=== PATIENT | male | born 1955 | race African-American/Black ===

== ENCOUNTER 2021-05-18 13:56 | Inpatient (IN) | payer MEDICARE, MEDICAID ==
[~2021-05-18] VITALS: Ht 175.3 cm; Wt 87.7 kg
[2021-05-18 16:25] LABS: BASOPHILS % 1.1 % (0.0-2.0); EOSINOPHILS % 1.1 % (0.0-5.0); HEMOGLOBIN. 13.2 g/dL (14.0-18.0); LYMPHOCYTES % 25.1 % (20.0-50.0); MEAN CORPUSCULAR HEMOGLOBIN 32.2 pg (28.0-32.0); MEAN CORPUSCULAR VOLUME 94.6 fL (80.0-94.0); MEAN PLATELET VOLUME 7.1 fl (7.4-10.4); MONOCYTES % 7.9 % (2.0-8.0); NEUTROPHILS % 64.8 % (40.0-76.0); PLATELET 281 x1000/uL (130-400); RED BLOOD CELL COUNT 4.12 mill/uL (4.7-6.1); RED CELL DISTRIBUTION WIDTH 15.5 % (11.6-14.6)
[2021-05-18 16:28] LABS: CHLORIDE 111 mEq/L (98-107)
[2021-05-18 16:40] LABS: PROTHROMBIN TIME 10.5 sec (9.6-11.0)
[2021-05-18 16:53] LABS: CLARITY URINE TURBID (CLEAR); COLOR URINE RED (YELLOW); KETONES URINE NEGATIVE (NEGATIVE); LEUKOCYTE ESTERASE URINE 2+ (NEGATIVE); NITRITE URINE POSITIVE (NEGATIVE); OCCULT BLOOD URINE 3+ (NEGATIVE); PH URINE 6.5 (4.5-8.0); PROTEIN URINE 4+ (NEGATIVE); SPECIFIC GRAVITY URINE 1.037 (1.005-1.030); UROBILINOGEN URINE 0.2 E.U./dL (0.2-1.0)
[2021-05-18] MEDS ORDERED: CEFTRIAXONE 1 G PREMIX 50 ML IV ONE (17:15)
[2021-05-18] MEDS ORDERED: IOHEXOL-300 100 ML BOTTLE ONE (21:19)
[2021-05-18 21:20] VITALS: BP 131/71
[2021-05-18 22:30] VITALS: BP 136/70
[2021-05-19] VITALS: BP 131/83
[2021-05-19] MEDS ORDERED: DEXTROSE 50% WATER 50ML SYRINGE IV PRN (00:15)
[2021-05-19] MEDS ORDERED: ACETAMINOPHEN 650MG/20.3ML UDC PO PRN (00:15)
[2021-05-19] MEDS ORDERED: CEFTRIAXONE 1 G PREMIX 50 ML IV SCH (00:15)
[2021-05-19] MEDS ORDERED: ASPI-1497 MT (00:56)
[2021-05-19] MEDS ORDERED: metformin (00:56)
[2021-05-19 04:00] VITALS: BP 130/84
[2021-05-19 06:23] LABS: CHLORIDE 110 mEq/L (98-107)
[2021-05-19] MEDS: BLOOD SUGAR DIAGNOSTIC STRIP TEST SCH ×4 (06:40→20:43)
[2021-05-19 06:43] LABS: BASOPHILS % 0.8 % (0.0-2.0); EOSINOPHILS % 2.3 % (0.0-5.0); HEMATOCRIT. 36.7 % (42.0-52.0); HEMOGLOBIN. 12.5 g/dL (14.0-18.0); LYMPHOCYTES % 36.9 % (20.0-50.0); MEAN CORPUSCULAR HEMOGLOBIN 32.2 pg (28.0-32.0); MEAN CORPUSCULAR VOLUME 94.7 fL (80.0-94.0); MONOCYTES % 11.3 % (2.0-8.0); NEUTROPHILS % 48.7 % (40.0-76.0); PLATELET 283 x1000/uL (130-400); RED BLOOD CELL COUNT 3.88 mill/uL (4.7-6.1); RED CELL DISTRIBUTION WIDTH 15.5 % (11.6-14.6)
[2021-05-19] MEDS: INSULIN LISPRO 100 UNITS/ML SUBCUT SCH ×5 (07:10→20:59)
[2021-05-19 08:00] VITALS: BP 112/63
[2021-05-19] MEDS ORDERED: MORPHINE SULFATE 2 MG/ML CPJ (NOT FOR IM USE) IV PRN (11:00)
[2021-05-19 12:00] VITALS: BP 113/69
[2021-05-19 16:00] VITALS: BP 107/74
[2021-05-19] MEDS ORDERED: BISACODYL 10MG SUPP PR PRN (16:00)
[2021-05-19] MEDS ORDERED: IPRATROPIUM/ALBUTEROL 0.5-3(2.5)MG/3ML NEB HHN PRN (16:00)
[2021-05-19] MEDS ORDERED: LACTULOSE 20G/30ML UDC PO PRN (16:00)
[2021-05-19] MEDS ORDERED: ONDANSETRON HCL 4MG/2ML INJ IV PRN (16:00)
[2021-05-19] MEDS ORDERED: HYDRALAZINE 20MG/ML VIAL IV PRN (16:00)
[2021-05-19] MEDS: SODIUM CHLORIDE 0.45% 1,000 ML IV SCH (17:53)
[2021-05-19] MEDS: CEFTRIAXONE 1,000 MG in DEXTROSE 5% WATER 50 ML IV SCH (17:53)
[2021-05-19 20:00] VITALS: BP 123/68
[2021-05-19] MEDS: SULFAMETHOXAZOLE/TRIMETHOPRIM 400/80MG TAB PO SCH (20:43)
[2021-05-19] MEDS: FAMOTIDINE 20MG TABLET PO SCH (20:43)
[2021-05-19] MEDS ORDERED: NALOXONE HCL 0.4MG/ML VIAL IV PRN (23:45)
[2021-05-20] VITALS: BP 130/73
[2021-05-20 04:00] VITALS: BP 123/64
[2021-05-20] MEDS: INSULIN LISPRO 100 UNITS/ML SUBCUT SCH ×4 (07:10→20:35)
[2021-05-20] MEDS: BLOOD SUGAR DIAGNOSTIC STRIP TEST SCH ×4 (07:16→20:35)
[2021-05-20 08:00] VITALS: BP 120/67
[2021-05-20] MEDS: SODIUM CHLORIDE 0.45% 1,000 ML IV SCH (09:18)
[2021-05-20] MEDS: SULFAMETHOXAZOLE/TRIMETHOPRIM 400/80MG TAB PO SCH ×2 (09:18→20:19)
[2021-05-20 09:44] LABS: BASOPHILS % 0.9 % (0.0-2.0); CHLORIDE 110 mEq/L (98-107); EOSINOPHILS % 2.7 % (0.0-5.0); HEMOGLOBIN. 12.7 g/dL (14.0-18.0); MEAN CORPUSCULAR HEMOGLOBIN 31.9 pg (28.0-32.0); MEAN CORPUSCULAR VOLUME 95.4 fL (80.0-94.0); MEAN PLATELET VOLUME 7.5 fl (7.4-10.4); MONOCYTES % 11.6 % (2.0-8.0); NEUTROPHILS % 58.8 % (40.0-76.0); PLATELET 279 x1000/uL (130-400); RED BLOOD CELL COUNT 3.98 mill/uL (4.7-6.1); RED CELL DISTRIBUTION WIDTH 15.5 % (11.6-14.6)
[2021-05-20 12:00] VITALS: BP 115/79
[2021-05-20 16:00] VITALS: BP 152/65
[2021-05-20] MEDS: CEFTRIAXONE 1,000 MG in DEXTROSE 5% WATER 50 ML IV SCH (18:07)
[2021-05-20 20:00] VITALS: BP 141/79
[2021-05-20] MEDS: FAMOTIDINE 20MG TABLET PO SCH (20:19)
[2021-05-21] VITALS: BP 150/75
[2021-05-21] MEDS: SODIUM CHLORIDE 0.45% 1,000 ML IV SCH ×2 (00:20→18:00)
[2021-05-21 04:00] VITALS: BP 141/74
[2021-05-21] MEDS: BLOOD SUGAR DIAGNOSTIC STRIP TEST SCH ×3 (05:57→16:41)
[2021-05-21] MEDS: INSULIN LISPRO 100 UNITS/ML SUBCUT SCH ×3 (06:37→16:41)
[2021-05-21 07:05] LABS: BASOPHILS % 0.9 % (0.0-2.0); EOSINOPHILS % 2.4 % (0.0-5.0); HEMATOCRIT. 35.8 % (42.0-52.0); HEMOGLOBIN. 12.1 g/dL (14.0-18.0); LYMPHOCYTES % 37.8 % (20.0-50.0); MEAN CORPUSCULAR HEMOGLOBIN 32.1 pg (28.0-32.0); MEAN CORPUSCULAR VOLUME 94.9 fL (80.0-94.0); MEAN PLATELET VOLUME 7.5 fl (7.4-10.4); MONOCYTES % 10.6 % (2.0-8.0); NEUTROPHILS % 48.3 % (40.0-76.0); PLATELET 256 x1000/uL (130-400); RED BLOOD CELL COUNT 3.77 mill/uL (4.7-6.1); RED CELL DISTRIBUTION WIDTH 15.5 % (11.6-14.6)
[2021-05-21 07:19] LABS: CHLORIDE 112 mEq/L (98-107)
[2021-05-21 08:00] VITALS: BP 169/79
[2021-05-21] MEDS: SULFAMETHOXAZOLE/TRIMETHOPRIM 400/80MG TAB PO SCH (08:48)
[2021-05-21 12:00] VITALS: BP 151/81
[2021-05-21] MEDS ORDERED: LEVO500T89 MT (13:51)
[2021-05-21 15:00] VITALS: BP 151/81
[2021-05-21 16:00] VITALS: BP 162/78
[2021-05-21] MEDS: CEFTRIAXONE 1,000 MG in DEXTROSE 5% WATER 50 ML IV SCH (18:00)
== END 2021-05-21 18:27 | disposition home or self-care (01) | DRG 687 ==
LOC: ER 13:56 → 7EST 18:47 → ENRESERV 20:23
PROVIDERS: ADMIT Internal Medicine; ATTEND Internal Medicine
PROC: 0T9B70Z Drainage of Bladder with Drainage Device, Via Natural or Artificial Opening (ICD-10-PCS; principal; 2021-05-18)
DX: C67.9 Malignant neoplasm of bladder, unspecified (principal); N39.0 Urinary tract infection, site not specified; L97.929 Non-pressure chronic ulcer of unspecified part of left lower leg with unspecified severity; L97.919 Non-pressure chronic ulcer of unspecified part of right lower leg with unspecified severity; S37.22XA Contusion of bladder, initial encounter; D64.9 Anemia, unspecified; E11.9 Type 2 diabetes mellitus without complications; S80.822A Blister (nonthermal), left lower leg, initial encounter; S80.821A Blister (nonthermal), right lower leg, initial encounter; X58.XXXA Exposure to other specified factors, initial encounter; K21.9 Gastro-esophageal reflux disease without esophagitis; Y83.5 Amputation of limb(s) as the cause of abnormal reaction of the patient, or of later complication, without mention of misadventure at the time of the procedure; I71.4 Abdominal aortic aneurysm, without rupture; I10 Essential (primary) hypertension; Z20.822 Contact with and (suspected) exposure to COVID-19; N43.3 Hydrocele, unspecified; Z79.82 Long term (current) use of aspirin; Z89.612 Acquired absence of left leg above knee; Z89.611 Acquired absence of right leg above knee; Y92.89 Other specified places as the place of occurrence of the external cause; Y93.89 Activity, other specified; Y99.8 Other external cause status
CPT/HCPCS: 36415; 74160; 80048; 80053; 81003; 82962; 83036; 84153; 85025; 86850; 86900; 87070; 87426; 99285; J0360; J0696; J1815; J7060; Q9967; G0103

== ENCOUNTER 2021-05-22 23:19 | Emergency (ER) | payer MEDICARE, MEDICAID ==
[~2021-05-22] VITALS: Ht 175.3 cm; Wt 99.0 kg
[~2021-05-22 23:19] MED LIST: ASPI-1497 MT; LEVO500T89 MT; metformin
[2021-05-23 04:02] VITALS: BP 136/88
== END 2021-05-23 04:20 | disposition home or self-care (01) ==
LOC: ER 23:19
DX: R33.9 Retention of urine, unspecified (principal); E11.9 Type 2 diabetes mellitus without complications; K21.9 Gastro-esophageal reflux disease without esophagitis; I10 Essential (primary) hypertension; Z79.82 Long term (current) use of aspirin; Z79.899 Other long term (current) drug therapy; Z89.512 Acquired absence of left leg below knee; Z89.511 Acquired absence of right leg below knee
CPT/HCPCS: 51702; 99284

== ENCOUNTER 2021-07-31 10:49 | Inpatient (IN) | payer MEDICARE, MEDICAID ==
[2021-07-30 23:00] VITALS: BP 134/75
[~2021-07-31] VITALS: Ht 121.9 cm; Wt 69.9 kg
[~2021-07-31 10:49] MED LIST changes: -ASPI-1497 MT
[2021-07-31] MEDS ORDERED: MORPHINE SULFATE 4 MG/ML CPJ (NOT FOR IM USE) IV STA (12:26)
[2021-07-31] MEDS ORDERED: ONDANSETRON HCL 4MG/2ML INJ IV STA (12:26)
[2021-07-31] MEDS ORDERED: PIPERACILLIN/TAZ 3.375G PREMIX 50 ML IV ONE (12:30)
[2021-07-31] MEDS ORDERED: SODIUM CHLORIDE 0.9% 1000ML BAG (SEPSIS BOLUS) IV ONE (12:30)
[2021-07-31] MEDS ORDERED: VANCOMYCIN 1 G PREMIX 200 ML IV ONE (12:30)
[2021-07-31 13:09] LABS: BASOPHILS % 0.9 % (0.0-2.0); EOSINOPHILS % 0.8 % (0.0-5.0); HEMATOCRIT. 43.3 % (42.0-52.0); HEMOGLOBIN. 14.5 g/dL (14.0-18.0); LYMPHOCYTES % 27.2 % (20.0-50.0); MEAN CORPUSCULAR HEMOGLOBIN 31.3 pg (28.0-32.0); MEAN CORPUSCULAR VOLUME 93.6 fL (80.0-94.0); MEAN PLATELET VOLUME 8.4 fl (7.4-10.4); MONOCYTES % 7.8 % (2.0-8.0); NEUTROPHILS % 63.3 % (40.0-76.0); PLATELET 280 x1000/uL (130-400); RED BLOOD CELL COUNT 4.62 mill/uL (4.7-6.1); RED CELL DISTRIBUTION WIDTH 14.8 % (11.6-14.6)
[2021-07-31 13:16] LABS: CHLORIDE 107 mEq/L (98-107)
[2021-07-31] MEDS ORDERED: HYDRALAZINE 20MG/ML VIAL IV PRN (14:00)
[2021-07-31] MEDS ORDERED: DOCUSATE SODIUM 100MG CAPSULE PO PRN (16:45)
[2021-07-31] MEDS ORDERED: GUAIFENESIN 200MG/10ML SUGAR FREE UDC PO PRN (16:45)
[2021-07-31] MEDS ORDERED: DEXTROSE 50% WATER 50ML SYRINGE IV PRN ×2 (16:45→23:30)
[2021-07-31] MEDS ORDERED: NA PHOS,M-B/NA PHOS,DI-BA ENEMA 118ML PR PRN (16:45)
[2021-07-31] MEDS ORDERED: LORAZEPAM 0.5MG TABLET PO PRN (16:45)
[2021-07-31] MEDS ORDERED: ONDANSETRON HCL 4MG/2ML INJ IV PRN (16:45)
[2021-07-31] MEDS ORDERED: IPRATROPIUM/ALBUTEROL 0.5-3(2.5)MG/3ML NEB NEB PRN (16:45)
[2021-07-31] MEDS ORDERED: ACETAMINOPHEN 325MG TABLET PO PRN ×2 (16:45→23:30)
[2021-07-31] MEDS ORDERED: MAGNESIUM/ALUMINUM HYDROXIDE/SIMETHICONE 30ML UDC PO PRN (16:45)
[2021-07-31] MEDS ORDERED: DIPHENHYDRAMINE 50MG/ML VIAL IV PRN (16:45)
[2021-07-31] MEDS ORDERED: CLONIDINE 0.1MG TABLET PO PRN (16:45)
[2021-07-31] MEDS ORDERED: ACETAMINOPHEN 650MG SUPP PR PRN (16:45)
[2021-07-31] MEDS: INSULIN LISPRO 100 UNITS/ML SUBCUT SCH ×2 (17:10→21:25)
[2021-07-31] MEDS: BLOOD SUGAR DIAGNOSTIC STRIP TEST SCH ×2 (17:58→21:25)
[2021-07-31] MEDS: MORPHINE SULFATE 2 MG/ML CPJ (NOT FOR IM USE) IV PRN (19:02)
[2021-07-31] MEDS ORDERED: PIPERACILLIN/TAZOBACTAM 3.375 G in DEXTROSE 5% WATER 50 ML IV SCH (20:00)
[2021-07-31 23:00] VITALS: BP 134/75
[2021-07-31] MEDS ORDERED: NALOXONE HCL 0.4 MG/ML 1ML VIAL IV PRN (23:45)
[2021-07-31 23:50] VITALS: BP 135/75
[2021-08-01] MEDS: SODIUM CHLORIDE 0.45% 1,000 ML IV SCH ×2 (01:10→20:10)
[2021-08-01] MEDS: VANCOMYCIN 500 MG PREMIX 100 ML IV SCH ×2 (01:10→17:33)
[2021-08-01 04:00] VITALS: BP 152/82
[2021-08-01] MEDS ORDERED: PIPERACILLIN/TAZOBACTAM 3.375 G in DEXTROSE 5% WATER 50 ML IV SCH (06:00)
[2021-08-01] MEDS: PIPERACILLIN/TAZOBACTAM 3.375 G in DEXTROSE 5% WATER 50 ML IV SCH ×3 (06:26→21:26)
[2021-08-01] MEDS: BLOOD SUGAR DIAGNOSTIC STRIP TEST SCH ×4 (06:26→21:25)
[2021-08-01] MEDS: PANTOPRAZOLE 40MG DR TABLET PO SCH (06:26)
[2021-08-01 07:23] LABS: BASOPHILS % 1.1 % (0.0-2.0); EOSINOPHILS % 2.8 % (0.0-5.0); HEMOGLOBIN. 12.9 g/dL (14.0-18.0); LYMPHOCYTES % 26.7 % (20.0-50.0); MEAN CORPUSCULAR HEMOGLOBIN 31.4 pg (28.0-32.0); MEAN CORPUSCULAR VOLUME 92.9 fL (80.0-94.0); MEAN PLATELET VOLUME 8.3 fl (7.4-10.4); MONOCYTES % 10.7 % (2.0-8.0); NEUTROPHILS % 58.7 % (40.0-76.0); PLATELET 234 x1000/uL (130-400); RED BLOOD CELL COUNT 4.09 mill/uL (4.7-6.1); RED CELL DISTRIBUTION WIDTH 14.7 % (11.6-14.6)
[2021-08-01] MEDS: INSULIN LISPRO 100 UNITS/ML SUBCUT SCH ×4 (07:40→21:00)
[2021-08-01 07:43] LABS: CHLORIDE 110 mEq/L (98-107)
[2021-08-01 07:48] LABS: LDL CHOLESTEROL 38 mg/dL (5-100)
[2021-08-01 07:49] LABS: HDL CHOLESTEROL 49 mg/dL (40-59)
[2021-08-01 08:00] VITALS: BP 133/74
[2021-08-01] MEDS: METFORMIN HCL 500MG TABLET PO SCH ×3 (10:37→17:34)
[2021-08-01] MEDS: LOSARTAN POTASSIUM 50 MG TABLET PO SCH ×2 (10:38→17:33)
[2021-08-01] MEDS: HYDROCODONE/ACETAMINOPHEN 5/325MG TABLET PO PRN ×2 (10:42→17:35)
[2021-08-01 12:00] VITALS: BP 156/90
[2021-08-01 16:00] VITALS: BP 126/74
[2021-08-01 16:26] LABS: PROTHROMBIN TIME 10.7 sec (9.6-11.0)
[2021-08-01 20:00] VITALS: BP 132/76
[2021-08-01] MEDS: ENOXAPARIN 40MG/0.4ML SYR SUBCUT SCH (20:00)
[2021-08-02] VITALS: BP 125/77
[2021-08-02] MEDS: VANCOMYCIN 500 MG PREMIX 100 ML IV SCH (01:35)
[2021-08-02 04:00] VITALS: BP 130/72
[2021-08-02] MEDS: PIPERACILLIN/TAZOBACTAM 3.375 G in DEXTROSE 5% WATER 50 ML IV SCH ×3 (06:17→21:32)
[2021-08-02] MEDS: PANTOPRAZOLE 40MG DR TABLET PO SCH (06:24)
[2021-08-02] MEDS: BLOOD SUGAR DIAGNOSTIC STRIP TEST SCH ×4 (06:34→21:44)
[2021-08-02] MEDS: INSULIN LISPRO 100 UNITS/ML SUBCUT SCH ×4 (07:20→21:00)
[2021-08-02 08:00] VITALS: BP 159/69
[2021-08-02] MEDS: ENOXAPARIN 40MG/0.4ML SYR SUBCUT SCH (08:02)
[2021-08-02] MEDS: LOSARTAN POTASSIUM 50 MG TABLET PO SCH ×2 (08:02→17:22)
[2021-08-02] MEDS: METFORMIN HCL 500MG TABLET PO SCH ×3 (08:02→17:22)
[2021-08-02 08:45] LABS: BASOPHILS % 0.3 % (0.0-2.0); EOSINOPHILS % 2.4 % (0.0-5.0); HEMATOCRIT. 40.2 % (42.0-52.0); HEMOGLOBIN. 13.2 g/dL (14.0-18.0); LYMPHOCYTES % 28.6 % (20.0-50.0); MEAN CORPUSCULAR HEMOGLOBIN 30.5 pg (28.0-32.0); MEAN PLATELET VOLUME 8.4 fl (7.4-10.4); MONOCYTES % 8.8 % (2.0-8.0); NEUTROPHILS % 59.9 % (40.0-76.0); PLATELET 248 x1000/uL (130-400); RED BLOOD CELL COUNT 4.32 mill/uL (4.7-6.1); RED CELL DISTRIBUTION WIDTH 15.1 % (11.6-14.6)
[2021-08-02 08:52] LABS: CHLORIDE 108 mEq/L (98-107)
[2021-08-02] MEDS: VANCOMYCIN 750 MG PREMIX 150 ML IV SCH ×2 (11:37→17:22)
[2021-08-02 12:00] VITALS: BP 136/75
[2021-08-02] MEDS ORDERED: LIDOCAINE HCL 1% 10 MG/ML 10ML VIAL ONE (13:31)
[2021-08-02] MEDS: SODIUM CHLORIDE 0.45% 1,000 ML IV SCH (14:34)
[2021-08-02 16:00] VITALS: BP 136/59
[2021-08-02] MEDS ORDERED: TETANUS AND DIPHTHERIA TOX/PF 0.5ML SYR (ADULT) IM ONE (16:00)
[2021-08-02 20:00] VITALS: BP 138/74
[2021-08-03] VITALS: BP 138/75
[2021-08-03 04:00] VITALS: BP 131/71
[2021-08-03] MEDS: VANCOMYCIN 750 MG PREMIX 150 ML IV SCH ×2 (05:16→11:28)
[2021-08-03] MEDS: PIPERACILLIN/TAZOBACTAM 3.375 G in DEXTROSE 5% WATER 50 ML IV SCH ×3 (06:17→21:58)
[2021-08-03] MEDS: PANTOPRAZOLE 40MG DR TABLET PO SCH (06:18)
[2021-08-03] MEDS: INSULIN LISPRO 100 UNITS/ML SUBCUT SCH ×4 (07:50→21:00)
[2021-08-03 08:00] VITALS: BP 140/74
[2021-08-03] MEDS: BLOOD SUGAR DIAGNOSTIC STRIP TEST SCH ×4 (08:14→21:00)
[2021-08-03] MEDS: ENOXAPARIN 40MG/0.4ML SYR SUBCUT SCH (08:15)
[2021-08-03] MEDS: METFORMIN HCL 500MG TABLET PO SCH ×3 (08:52→17:13)
[2021-08-03] MEDS: LOSARTAN POTASSIUM 50 MG TABLET PO SCH ×2 (08:53→17:00)
[2021-08-03 08:54] LABS: BASOPHILS % 1.1 % (0.0-2.0); EOSINOPHILS % 1.8 % (0.0-5.0); HEMATOCRIT. 40.7 % (42.0-52.0); HEMOGLOBIN. 13.1 g/dL (14.0-18.0); LYMPHOCYTES % 27.6 % (20.0-50.0); MEAN CORPUSCULAR HEMOGLOBIN 29.8 pg (28.0-32.0); MEAN CORPUSCULAR VOLUME 92.8 fL (80.0-94.0); MEAN PLATELET VOLUME 8.5 fl (7.4-10.4); MONOCYTES % 9.5 % (2.0-8.0); PLATELET 256 x1000/uL (130-400); RED BLOOD CELL COUNT 4.38 mill/uL (4.7-6.1); RED CELL DISTRIBUTION WIDTH 14.6 % (11.6-14.6)
[2021-08-03] MEDS ORDERED: VANCOMYCIN HCL 1 GM/VIAL ONE (11:38)
[2021-08-03] MEDS ORDERED: LIDOCAINE HCL/EPINEPHRINE 1%-EPI 1:100,000 20 ML VIAL ONE (11:41)
[2021-08-03] MEDS ORDERED: POLYMYXIN B SULFATE 500000 UNITS/VIAL ONE (11:41)
[2021-08-03 11:43] LABS: CHLORIDE 107 mEq/L (98-107)
[2021-08-03 11:48] LABS: C REACTIVE PROTEIN QUANT 5.6 mg/L (0.0-3.0)
[2021-08-03 12:00] VITALS: BP 140/72
[2021-08-03] MEDS: SODIUM CHLORIDE 0.45% 1,000 ML IV SCH (12:17)
[2021-08-03 16:00] VITALS: BP 138/78
[2021-08-03] MEDS ORDERED: PROPOFOL 200MG/20ML VIAL IV ONE ×2 (17:25→17:42)
[2021-08-03] MEDS ORDERED: FENTANYL CITRATE/PF 50MCG/ML 2ML VIAL ONE (17:25)
[2021-08-03] MEDS ORDERED: MIDAZOLAM HCL 2 MG/2 ML VIAL ONE (17:26)
[2021-08-03] MEDS ORDERED: ONDANSETRON HCL 4MG/2ML INJ ONE (17:35)
[2021-08-03] MEDS ORDERED: DEXAMETHASONE 4MG/ML 1ML VIAL ONE (17:35)
[2021-08-03] MEDS ORDERED: ONDANSETRON HCL 4MG/2ML INJ IV PRN (17:45)
[2021-08-03] MEDS ORDERED: MEPERIDINE HCL/PF 25MG/ML CPJ IV PRN (17:45)
[2021-08-03] MEDS ORDERED: LABETALOL 5MG/ML SYR 20 MG/4 ML SYRINGE IV PRN (17:45)
[2021-08-03] MEDS ORDERED: ROPIVACAINE HCL 10MG/ML 20 ML VIAL EPI ONE (17:51)
[2021-08-03] MEDS: HYDROMORPHONE HCL/PF 2MG/ML CPJ IV PRN ×5 (18:36→19:25)
[2021-08-03 20:00] VITALS: BP 149/74
[2021-08-03] MEDS: VANCOMYCIN 1 G PREMIX 200 ML IV SCH (21:58)
[2021-08-03] MEDS: MORPHINE SULFATE 2 MG/ML CPJ (NOT FOR IM USE) IV PRN (23:52)
[2021-08-04] VITALS (8 sets, daily range): BP systolic 145–163; BP diastolic 69–84
[2021-08-04] MEDS: VANCOMYCIN 1 G PREMIX 200 ML IV SCH ×3 (05:56→21:25)
[2021-08-04] MEDS: PIPERACILLIN/TAZOBACTAM 3.375 G in DEXTROSE 5% WATER 50 ML IV SCH ×3 (05:57→21:25)
[2021-08-04] MEDS: MORPHINE SULFATE 2 MG/ML CPJ (NOT FOR IM USE) IV PRN (06:14)
[2021-08-04] MEDS: PANTOPRAZOLE 40MG DR TABLET PO SCH (06:52)
[2021-08-04 07:19] LABS: BASOPHILS % 0.3 % (0.0-2.0); HEMATOCRIT. 38.4 % (42.0-52.0); HEMOGLOBIN. 12.8 g/dL (14.0-18.0); MEAN CORPUSCULAR HEMOGLOBIN 30.6 pg (28.0-32.0); MEAN PLATELET VOLUME 8.7 fl (7.4-10.4); MONOCYTES % 2.8 % (2.0-8.0); NEUTROPHILS % 87.9 % (40.0-76.0); PLATELET 241 x1000/uL (130-400); RED BLOOD CELL COUNT 4.18 mill/uL (4.7-6.1); RED CELL DISTRIBUTION WIDTH 14.2 % (11.6-14.6)
[2021-08-04] MEDS: BLOOD SUGAR DIAGNOSTIC STRIP TEST SCH ×4 (07:19→21:24)
[2021-08-04] MEDS: SODIUM CHLORIDE 0.45% 1,000 ML IV SCH (07:19)
[2021-08-04] MEDS: INSULIN LISPRO 100 UNITS/ML SUBCUT SCH ×4 (07:19→21:00)
[2021-08-04 07:27] LABS: CHLORIDE 107 mEq/L (98-107)
[2021-08-04] MEDS: LOSARTAN POTASSIUM 50 MG TABLET PO SCH ×2 (08:46→17:42)
[2021-08-04] MEDS: METFORMIN HCL 500MG TABLET PO SCH ×3 (08:46→17:42)
[2021-08-04] MEDS: ENOXAPARIN 40MG/0.4ML SYR SUBCUT SCH (08:47)
[2021-08-04] MEDS: HYDROCODONE/ACETAMINOPHEN 5/325MG TABLET PO PRN ×2 (10:35→19:51)
[2021-08-04] MEDS ORDERED: SULF1TAB48 MT (15:03)
[2021-08-04] MEDS ORDERED: HYDR-4001 MT (15:03)
[2021-08-04] MEDS ORDERED: LEVO500T89 MT (15:03)
== END 2021-08-05 00:32 | disposition home or self-care (01) | DRG 475 ==
LOC: ER 10:49 → MICUSO 14:36 → 6EST 23:53
PROVIDERS: ADMIT Internal Medicine; ATTEND Internal Medicine
PROC: 02HV33Z Insertion of Infusion Device into Superior Vena Cava, Percutaneous Approach (ICD-10-PCS; 2021-08-02)
PROC: B518ZZA Fluoroscopy of Superior Vena Cava, Guidance (ICD-10-PCS; 2021-08-02)
PROC: B546ZZA Ultrasonography of Right Subclavian Vein, Guidance (ICD-10-PCS; 2021-08-02)
PROC: 0Y6F0ZZ Detachment at Right Knee Region, Open Approach (ICD-10-PCS; principal; 2021-08-03)
DX: T87.43 Infection of amputation stump, right lower extremity (principal); L03.115 Cellulitis of right lower limb; M86.8X6 Other osteomyelitis, lower leg; E11.51 Type 2 diabetes mellitus with diabetic peripheral angiopathy without gangrene; I10 Essential (primary) hypertension; N32.9 Bladder disorder, unspecified; Y83.5 Amputation of limb(s) as the cause of abnormal reaction of the patient, or of later complication, without mention of misadventure at the time of the procedure; K21.9 Gastro-esophageal reflux disease without esophagitis; Z20.822 Contact with and (suspected) exposure to COVID-19; E11.69 Type 2 diabetes mellitus with other specified complication; Z89.512 Acquired absence of left leg below knee; Z79.2 Long term (current) use of antibiotics; Z79.899 Other long term (current) drug therapy; Y92.89 Other specified places as the place of occurrence of the external cause
CPT/HCPCS: 36415; 36573; 71045; 73560; 73700; 73721; 80048; 80053; 80061; 80202; 82962; 83036; 83605; 84145; 84443; 84484; 85025; 85651; 86140; 86850; 86900; 87070; 87075; 87426; 90714; 93005; 93306; 93970; 97162; 99285; C1725; J0360; J1100; J1170; J1650; J1815; J2250; J2270; J2405; J2543; J2704; J2795; J3010; J3370; J3490; J7030; J7040; J7060; L1830

== ENCOUNTER 2022-10-03 09:28 | Emergency (ER) | payer MEDICARE, MEDICAID ==
[~2022-10-03] VITALS: Ht 182.9 cm; Wt 91.0 kg
[~2022-10-03 09:28] MED LIST changes: +HYDR-4001 MT; +LEVO-65 MT; -LEVO500T89 MT; +SULF1TAB48 MT
[2022-10-03] MEDS ORDERED: ETOMIDATE 2MG/ML 10ML VIAL IV ONE (09:30)
[2022-10-03] MEDS ORDERED: EPINEPHRINE 0.1MG/ML (1:10,000) 10ML SYR ONE (09:30)
[2022-10-03] MEDS ORDERED: SODIUM BICARBONATE 8.4% MEQ/ML 50ML VIAL IV ONE (09:30)
[2022-10-03] MEDS ORDERED: CALCIUM CHLORIDE 1GM/10ML SYR IV ONE (09:30)
[2022-10-03 09:34] VITALS: BP 0/0
== END 2022-10-03 12:27 ==
LOC: ER 10:06
DX: I46.9 Cardiac arrest, cause unspecified (principal); I10 Essential (primary) hypertension; E11.9 Type 2 diabetes mellitus without complications; K21.9 Gastro-esophageal reflux disease without esophagitis; Z89.511 Acquired absence of right leg below knee; Z79.84 Long term (current) use of oral hypoglycemic drugs
CPT/HCPCS: 31500; 92950; 99285; J3490